=== PATIENT | female | born 1995 | race African-American/Black ===

== ENCOUNTER 2019-08-11 03:30 | Emergency (ER) | payer MEDICAID ==
[~2019-08-11] VITALS: Ht 165.1 cm; Wt 82.0 kg
[~2019-08-11 03:30] MED LIST: ALBU17AE26
[2019-08-11] MEDS ORDERED: SODIUM CHLORIDE 0.9% 1,000 ML IV ONE (04:58)
[2019-08-11 05:08] LABS: HEMATOCRIT. 41.3 % (36.0-48.0); HEMOGLOBIN. 13.8 g/dL (12.0-16.0); MEAN CORPUSCULAR HEMOGLOBIN 28.5 pg (28.0-32.0); MEAN CORPUSCULAR VOLUME 85.3 fL (81.0-99.0); RED BLOOD CELL COUNT 4.85 mill/uL (4.2-5.4); RED CELL DISTRIBUTION WIDTH 14.9 % (11.6-14.6)
[2019-08-11 05:20] LABS: CHLORIDE 105 mEq/L (98-107)
[2019-08-11 05:24] LABS: ETHANOL BLOOD < 10 mg/dL
[2019-08-11 05:47] LABS: MEAN PLATELET VOLUME 8.5 fl (7.4-10.4); PLATELET 347 x1000/uL (130-400)
[2019-08-11 05:52] LABS: PLATELET ESTIMATE NORMAL
[2019-08-11] MEDS ORDERED: ONDANSETRON HCL 4MG/2ML INJ IV ONE ×2 (06:00→08:30)
[2019-08-11 06:50] LABS: HCG SCREEN NEGATIVE
[2019-08-11 07:36] LABS: CLARITY URINE CLEAR (CLEAR); COLOR URINE YELLOW (YELLOW); KETONES URINE 3+ (NEGATIVE); LEUKOCYTE ESTERASE URINE NEGATIVE (NEGATIVE); NITRITE URINE NEGATIVE (NEGATIVE); OCCULT BLOOD URINE NEGATIVE (NEGATIVE); PROTEIN URINE NEGATIVE (NEGATIVE); UROBILINOGEN URINE 0.2 E.U./dL (0.2-1.0)
[2019-08-11 08:19] LABS: *AMPHETAMINES SCREEN URINE NEGATIVE (NEGATIVE); *BARBITURATES SCREEN URINE NEGATIVE (NEGATIVE); *BENZODIAZEPINES SCREEN URINE NEGATIVE (NEGATIVE); *COCAINE SCREEN URINE NEGATIVE (NEGATIVE)
[2019-08-11 08:21] LABS: CANNABINOID URINE SCREEN NEGATIVE (NEGATIVE); OPIATES URINE SCREEN NEGATIVE (NEGATIVE); PHENCYCLIDINE URINE SCREEN NEGATIVE (NEGATIVE)
[2019-08-11 08:23] LABS: METHADONE URINE SCREEN NEGATIVE (NEGATIVE)
[2019-08-11 09:05] VITALS: BP 128/65
== END 2019-08-11 09:16 | disposition home or self-care (01) ==
LOC: ER 03:30
DX: R11.2 Nausea with vomiting, unspecified (principal); R19.7 Diarrhea, unspecified; J45.909 Unspecified asthma, uncomplicated; Z88.0 Allergy status to penicillin; Z91.040 Latex allergy status
CPT/HCPCS: 36415; 80053; 80305; 80320; 81003; 81025; 83690; 84703; 85025; 96361; 96374; 96376; 99285; J2405; J7030; G0480

== ENCOUNTER 2022-04-20 08:28 | Emergency (ER) | payer MEDICAID ==
[~2022-04-20] VITALS: Ht 172.7 cm; Wt 82.0 kg
[2022-04-20 08:32] VITALS: BP 165/91
[2022-04-20] MEDS ORDERED: ACETAMINOPHEN 325MG TABLET PO ONE (08:45)
[2022-04-20] MEDS ORDERED: METHOCARBAMOL 750MG TABLET PO SCH ×2 (09:30→14:00)
[2022-04-20] MEDS ORDERED: METH-653 MT (11:06)
== END 2022-04-20 11:18 | disposition home or self-care (01) ==
LOC: ER 08:28
DX: S16.1XXA Strain of muscle, fascia and tendon at neck level, initial encounter (principal); J45.909 Unspecified asthma, uncomplicated; Z91.040 Latex allergy status; Z98.890 Other specified postprocedural states; Z88.0 Allergy status to penicillin; V49.9XXA Car occupant (driver) (passenger) injured in unspecified traffic accident, initial encounter; Y93.89 Activity, other specified; Y92.89 Other specified places as the place of occurrence of the external cause; Y99.8 Other external cause status
CPT/HCPCS: 71045; 81025; 99284